=== PATIENT | female | born 1930 | race Caucasian/White ===

== ENCOUNTER 2016-12-01 17:07 | Emergency (ER) | payer MEDICARE ==
[~2016-12-01] VITALS: Ht 154.9 cm; Wt 47.9 kg
[~2016-12-01 17:07] MED LIST: ACET325T21 PO; ACID1TAB7 PO; AMLO5TAB2 PO; ASPI-621 PO; ASPI-650 PO; ATOR20TA PO; CARV3.122 PO; CHOL239. PO; HYDR25TA6 PO; ISOS30TA8 PO; LEVO50TA5 PO; LISI-167 PO; LISI5TAB7 PO; LUTE20TA PO; NITR0.4T SL; PANT40TA3 PO; THYROID MEDICATION; TICA90TA PO; UBID100C11 PO
[2016-12-01] MEDS ORDERED: ASPIRIN 325 MG TABLET PO ONE (17:30)
[2016-12-01] MEDS ORDERED: SODIUM CHLORIDE FLUSH 10ML SYR IVF ONE (17:30)
[2016-12-01] MEDS ORDERED: ASPIRIN 81 MG TABLET CHEW ONE (17:49)
[2016-12-01 18:23] LABS: HEMOGLOBIN 12.6 g/dL (11.7-16.4)
[2016-12-01 18:33] LABS: BLOOD UREA NITROGEN 20 mg/dL (7-18)
[2016-12-01 18:37] LABS: ASPARTATE AMINO TRANSFERASE 99 U/L (15-37)
[2016-12-01 18:41] LABS: IS PT STATUS REG ER OR PRE ER? YES
[2016-12-01 20:50] VITALS: BP 134/68
== END 2016-12-01 20:52 | disposition home or self-care (01) ==
LOC: ED 19:03
DX: R06.00 Dyspnea, unspecified (principal); K21.9 Gastro-esophageal reflux disease without esophagitis; E78.5 Hyperlipidemia, unspecified; I10 Essential (primary) hypertension
CPT/HCPCS: 36415; 71010; 80053; 84484; 85025; 93005; 99285

== ENCOUNTER 2018-09-18 20:22 | Observation (INO) | payer MEDICARE, OTHER ==
[~2018-09-18] VITALS: Ht 152.4 cm; Wt 53.4 kg
[~2018-09-18 20:22] MED LIST changes: +AMLO-150 PO; -AMLO5TAB2 PO; -ASPI-621 PO; +ASPI81TA45 PO; -UBID100C11 PO; +UBID100C41 PO
[2018-09-18] MEDS ORDERED: ASPIRIN 81 MG TABLET CHEW PO ONE (21:00)
[2018-09-18] MEDS ORDERED: SODIUM CHLORIDE FLUSH 10ML SYR IVF ONE (21:00)
[2018-09-18 21:14] LABS: BASOPHILS # (AUTO) 0.07 x10^3/uL (0-0.1); BASOPHILS % (AUTO) 1 % (0-1); EOSINOPHILS # (AUTO) 0.16 x10^3/uL (0-0.4); EOSINOPHILS % (AUTO) 3 % (1-7); LYMPHOCYTES # (AUTO) 2.19 x10^3/uL (1-3.4); LYMPHOCYTES % (AUTO) 34 % (22-44); MD NO; MEAN CORPUSCULAR HEMOGLOBIN 29.4 pg (27.0-34.8); MEAN CORPUSCULAR HGB CONC 33.6 g/dL (32.4-35.8); MEAN CORPUSCULAR VOLUME 87.7 fL (80-100); MEAN PLATELET VOLUME 7.8 fL (7.4-10.4); MONOCYTES # (AUTO) 0.57 x10^3/uL (0.2-0.8); MONOCYTES % (AUTO) 9 % (2-9); NEUTROPHILS # (AUTO) 3.41 x10^3/uL (1.8-6.8); NEUTROPHILS % (AUTO) 53 % (42-75); PLATELET COUNT 309 x10^3/uL (130-400); RED BLOOD COUNT 5.12 x10^6/uL (3.82-5.3); RED CELL DISTRIBUTION WIDTH 14.3 % (9.6-15.2)
--- NOTE | 2018-09-18 21:14 | NUR ---
ASSUMED CARE OF PT AT THIS TIME. PT PRESENTS TO ED WITH A VERY UNCLEAR STORY. IT APPEARS PT HAS BEEN HAVING BILATERAL FLANK PAIN THAT RADIATES AROUND RIB CAGE. PT STATES NAUSEA. PT ALSO STATES SHE THINKS SHE HAD A HEART ATTACK. WHEN ASKING PT ABOUT CHEST PAIN SHE DENIES CHEST PAIN. 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 PT BREATHING SLIGHTLY INCREASED BUT NON LABORED. PT WITH MILD AMOUNT OF DISTRESS. MODERATE ANXIETY NOTED. POC DISCUSSED. WILL CONTINUE TO MONITOR.
[2018-09-18 21:20] LABS: ANION GAP 8 mmol/L (5-15); CALCIUM 10.3 mg/dL (8.5-10.1); CHLORIDE 108 mmol/L (98-107); CREATININE 0.99 mg/dL (0.55-1.02)
[2018-09-18 21:25] LABS: TROPONIN I < 0.015 ng/mL (0.000-0.045)
[2018-09-18] MEDS ORDERED: hydrALAzine 20 MG/ML, 1ML ONE (21:39)
--- NOTE | 2018-09-18 21:48 | NUR ---
PT MEDICATED PER OCT. 5 RIGHTS VERIFIED PRIOR. 3 P'S ADDRESSED.
--- NOTE | 2018-09-18 21:58 | NUR ---
REPORT FROM AR BOSTON
[2018-09-18] MEDS ORDERED: OMNIPAQUE 350 MG/ML, 100ML BOTTLE ONE (22:00)
[2018-09-18] MEDS ORDERED: hydrALAzine 20 MG/ML, 1ML IV ONE (22:00)
--- NOTE | 2018-09-18 22:01 | NUR ---
REPORT TO AR GARG.
--- NOTE | 2018-09-18 22:11 | NUR ---
FIRST CONTACT WITH PT. PT AWAKE/ALERT, NAD NOTED. IMPROVEMENT IN BP NOTED. PT ALSO REPORTS IMPROVEMENT IN PAIN. BP/SPO2/ECG MONITOR IN PLACE. NSR ON MONITOR. PT ASSISTED TO BED AL.
[2018-09-18] MEDS: ATORVASTATIN 20 MG TABLET PO SCH (23:57)
[2018-09-19] MEDS ORDERED: ONDANSETRON 2MG/ML, 2ML IVPush PRN
[2018-09-19] MEDS ORDERED: BISACODYL 10 MG SUPP PR PRN
[2018-09-19] MEDS ORDERED: morphine SULFATE 10 MG/ML, 1ML IVPush PRN
[2018-09-19] MEDS ORDERED: hydrALAzine 20 MG/ML, 1ML IVPush PRN
[2018-09-19] MEDS ORDERED: NITROGLYCERIN 0.4 MG BOTTLE (25 TABS) SL PRN
[2018-09-19] MEDS ORDERED: POLYETHYLENE GLYCOL 17 GM PACKET PO PRN
[2018-09-19] MEDS ORDERED: ACETAMINOPHEN 325 MG TABLET PO PRN
[2018-09-19 00:48] VITALS: BP 159/64
[2018-09-19 03:37] LABS: ALBUMIN 3.6 g/dL (3.4-5.0); ANION GAP 8 mmol/L (5-15); CALCIUM 9.3 mg/dL (8.5-10.1); CHLORIDE 107 mmol/L (98-107)
[2018-09-19 03:42] LABS: ALANINE AMINOTRANSFERASE 21 U/L (12-78); ALKALINE PHOSPHATASE 133 U/L (45-117); BILIRUBIN,TOTAL 0.9 mg/dL (0.2-1.0); TOTAL PROTEIN 7.5 g/dL (6.4-8.2); TROPONIN I < 0.015 ng/mL (0.000-0.045)
[2018-09-19 03:48] LABS: BASOPHILS # (AUTO) 0.02 x10^3/uL (0-0.1); BASOPHILS % (AUTO) 0 % (0-1); EOSINOPHILS # (AUTO) 0.12 x10^3/uL (0-0.4); EOSINOPHILS % (AUTO) 1 % (1-7); LYMPHOCYTES # (AUTO) 1.58 x10^3/uL (1-3.4); LYMPHOCYTES % (AUTO) 15 % (22-44); MD NO; MEAN CORPUSCULAR HEMOGLOBIN 29.7 pg (27.0-34.8); MEAN CORPUSCULAR HGB CONC 33.7 g/dL (32.4-35.8); MEAN CORPUSCULAR VOLUME 88.1 fL (80-100); MEAN PLATELET VOLUME 7.8 fL (7.4-10.4); MONOCYTES # (AUTO) 0.64 x10^3/uL (0.2-0.8); MONOCYTES % (AUTO) 6 % (2-9); NEUTROPHILS # (AUTO) 7.97 x10^3/uL (1.8-6.8); NEUTROPHILS % (AUTO) 77 % (42-75); PLATELET COUNT 252 x10^3/uL (130-400); RED BLOOD COUNT 4.91 x10^6/uL (3.82-5.3); RED CELL DISTRIBUTION WIDTH 13.9 % (9.6-15.2)
[2018-09-19] MEDS: CARVEDILOL 3.125 MG TABLET PO SCH ×2 (05:47→18:40)
[2018-09-19] MEDS: SENNA/DOCUSATE TABLET PO SCH (08:18)
[2018-09-19] MEDS: LEVOTHYROXINE 50 MCG TABLET PO SCH (08:18)
[2018-09-19] MEDS: ASPIRIN 81 MG TABLET EC PO SCH (08:18)
[2018-09-19] MEDS: SODIUM CHLORIDE FLUSH 10ML SYR IVF SCH ×3 (08:18→21:02)
[2018-09-19] MEDS ORDERED: TEMPLATE NON-FORMULARY MED. (Ubidecarenone** (Co Q-10**) 200 MG) PO SCH (09:00)
[2018-09-19 09:35] LABS: TROPONIN I < 0.015 ng/mL (0.000-0.045)
[2018-09-19] MEDS ORDERED: REGADENOSON 0.4 MG/5 ML SYRINGE ONE (10:47)
[2018-09-19 14:17] LABS: MICROSCOPIC NOT IND
[2018-09-19 14:33] LABS: CULTURE INDICATED? NO
[2018-09-19 15:06] VITALS: BP 95/56
[2018-09-19 15:35] VITALS: BP 100/62
[2018-09-19] MEDS ORDERED: SODIUM CHLORIDE 0.9% 1,000 ML IV SCH (16:00)
[2018-09-19] MEDS ORDERED: OMNIPAQUE 350 MG/ML, 100ML BOTTLE ONE (16:23)
[2018-09-19 19:58] VITALS: BP 119/68
[2018-09-19] MEDS: ATORVASTATIN 20 MG TABLET PO SCH (21:01)
[2018-09-19] MEDS: LISINOPRIL 20 MG TABLET PO SCH (21:01)
[2018-09-19] MEDS: OMEPRAZOLE 20 MG CAPSULE.DR PO SCH (21:01)
[2018-09-20 01:46] VITALS: BP 112/66
[2018-09-20 05:00] VITALS: BP 93/64
[2018-09-20 05:05] VITALS: BP 90/66
[2018-09-20] MEDS: OMEPRAZOLE 20 MG CAPSULE.DR PO SCH (05:19)
[2018-09-20] MEDS: CARVEDILOL 3.125 MG TABLET PO SCH (06:00)
[2018-09-20 06:11] LABS: ANION GAP 7 mmol/L (5-15); CHLORIDE 112 mmol/L (98-107); CREATININE 1.12 mg/dL (0.55-1.02)
[2018-09-20 06:35] VITALS: BP 95/58
[2018-09-20 07:47] VITALS: BP 118/70
[2018-09-20] MEDS: LISINOPRIL 20 MG TABLET PO SCH (09:00)
[2018-09-20] MEDS ORDERED: SODIUM CHLORIDE 0.9% 1,000 ML IV SCH (09:00)
[2018-09-20] MEDS: SENNA/DOCUSATE TABLET PO SCH (09:00)
[2018-09-20] MEDS: SODIUM CHLORIDE FLUSH 10ML SYR IVF SCH (10:13)
[2018-09-20] MEDS: ASPIRIN 81 MG TABLET EC PO SCH (10:14)
[2018-09-20] MEDS: LEVOTHYROXINE 50 MCG TABLET PO SCH (10:15)
[2018-09-20 14:23] VITALS: BP 112/67
[2018-09-20] MEDS ORDERED: METOPROLOL SUCCINATE 25 MG TAB.ER.24H PO SCH (21:00)
== END 2018-09-20 17:10 | disposition home or self-care (01) ==
LOC: ED 22:09 → EDIP 23:14 → INTOOBSV 23:14 → 5SO 09-19 00:42 → DCLOUNGE 09-20 16:54
PROVIDERS: ADMIT Internal Medicine; ATTEND Internal Medicine
DX: R07.9 Chest pain, unspecified (principal); E03.9 Hypothyroidism, unspecified; E04.1 Nontoxic single thyroid nodule; E78.5 Hyperlipidemia, unspecified; I10 Essential (primary) hypertension; I16.0 Hypertensive urgency; I25.10 Atherosclerotic heart disease of native coronary artery without angina pectoris; I25.2 Old myocardial infarction; K21.9 Gastro-esophageal reflux disease without esophagitis; M32.9 Systemic lupus erythematosus, unspecified; Z66 Do not resuscitate; Z90.710 Acquired absence of both cervix and uterus; Z95.5 Presence of coronary angioplasty implant and graft
CPT/HCPCS: 36415; 71045; 71275; 74177; 74181; 78452; 80048; 80053; 81003; 82040; 82306; 83690; 83880; 84484; 85025; 93005; 93017; 96374; 99284; A9502; C9898; G0378; J0360; J2785; J7030; Q9967